=== PATIENT | female | born 1990 | race Caucasian/White ===

== ENCOUNTER 2021-10-08 00:14 | Emergency (ER) | payer OTHER ==
[~2021-10-08] VITALS: Ht 165.1 cm; Wt 59.0 kg
== END 2021-10-08 01:40 | disposition home or self-care (01) ==
LOC: ER 00:14
DX: T75.89XA Other specified effects of external causes, initial encounter (principal); S00.10XA Contusion of unspecified eyelid and periocular area, initial encounter; F17.210 Nicotine dependence, cigarettes, uncomplicated; X58.XXXA Exposure to other specified factors, initial encounter
CPT/HCPCS: 99283